=== PATIENT | male | born 1950 | race Caucasian/White ===

== ENCOUNTER 2021-12-20 09:33 | Inpatient (IN) | payer OTHER ==
[~2021-12-20] VITALS: Ht 188 cm; Wt 127.0 kg
[2021-12-20 11:30] LABS: HEMOGLOBIN 11.4 gm/dl (14.0-17.5); RED BLOOD COUNT 3.85 M/UL (4.20-5.50); WHITE BLOOD COUNT 20.2 K/UL (4.5-11.0)
[2021-12-20 11:55] LABS: BUN/CREATININE RATIO 18 (0-10)
[2021-12-20 17:44] LABS: HEMOGLOBIN 11.1 gm/dl (14.0-17.5); RED BLOOD COUNT 3.78 M/UL (4.20-5.50); WHITE BLOOD COUNT 17.7 K/UL (4.5-11.0)
--- NOTE | 2021-12-20 20:24 | NUR ---
PT REFUSES TELEMETRY. NOTIFIED DR SALEH AND RECIEVED ORDERS TO D/C. WILL CONTINUE TO MONITOR.
[2021-12-20] MEDS ORDERED: TRAMADOL HCL50 MG PO (20:42)
[2021-12-20] MEDS ORDERED: AMITRIPTYLINE150 MG PO (20:42)
[2021-12-21 04:25] LABS: HEMOGLOBIN 11.7 gm/dl (14.0-17.5); RED BLOOD COUNT 3.91 M/UL (4.20-5.50); WHITE BLOOD COUNT 17.8 K/UL (4.5-11.0)
[2021-12-21] MEDS ORDERED: CLOPIDOGREL75 MG PO (12:48)
[2021-12-21] MEDS ORDERED: DOXYCYCLINE HY100 MG PO (12:49)
[2021-12-21] MEDS ORDERED: ATORVASTATIN CA80 MG PO (12:50)
[2021-12-21] MEDS ORDERED: METOPROLOL SUCC25 MG PO (12:50)
[2021-12-21] MEDS ORDERED: LISINOPRIL10 MG PO (12:51)
[2021-12-21] MEDS ORDERED: FUROSEMIDE20 MG PO (12:51)
[2021-12-22 04:49] LABS: HEMOGLOBIN 10.6 gm/dl (14.0-17.5); RED BLOOD COUNT 3.55 M/UL (4.20-5.50); WHITE BLOOD COUNT 13.9 K/UL (4.5-11.0)
[2021-12-22] MEDS ORDERED: MAGNESIUM OXID400 M1 PO (16:29)
[2021-12-23 06:15] LABS: HEMOGLOBIN 10.5 gm/dl (14.0-17.5); RED BLOOD COUNT 3.65 M/UL (4.20-5.50)
[2021-12-23 06:17] LABS: WHITE BLOOD COUNT 10.2 K/UL (4.5-11.0)
[2021-12-23 06:51] LABS: BUN/CREATININE RATIO 16 (0-10)
[2021-12-25 05:32] LABS: HEMOGLOBIN 10.8 gm/dl (14.0-17.5); RED BLOOD COUNT 3.66 M/UL (4.20-5.50); WHITE BLOOD COUNT 12.3 K/UL (4.5-11.0)
[2021-12-25 06:02] LABS: BUN/CREATININE RATIO 16 (0-10)
[2021-12-26 06:12] LABS: HEMOGLOBIN 10.5 gm/dl (14.0-17.5); RED BLOOD COUNT 3.54 M/UL (4.20-5.50); WHITE BLOOD COUNT 11.9 K/UL (4.5-11.0)
[2021-12-26 06:34] LABS: BUN/CREATININE RATIO 14 (0-10)
[2021-12-26] MEDS ORDERED: ACETAMINOPHEN325 MG PO (08:51)
[2021-12-26] MEDS ORDERED: ASPIRIN EC81 MG PO (08:51)
[2021-12-26] MEDS ORDERED: FERROUS SULFAT325 M2 PO (08:51)
[2021-12-26] MEDS ORDERED: INVANZ 1 GM (08:51)
[2021-12-26] MEDS ORDERED: LANTUS INS100 UTS/M1 SQ (08:56)
[2021-12-27 05:25] LABS: HEMOGLOBIN 10.2 gm/dl (14.0-17.5); RED BLOOD COUNT 3.55 M/UL (4.20-5.50); WHITE BLOOD COUNT 11.3 K/UL (4.5-11.0)
[2021-12-27 05:38] LABS: BUN/CREATININE RATIO 16 (0-10)
[2021-12-30 07:09] LABS: HEMOGLOBIN 10.6 gm/dl (14.0-17.5); RED BLOOD COUNT 3.61 M/UL (4.20-5.50)
[2021-12-30 07:38] LABS: BUN/CREATININE RATIO 14 (0-10)
[2022-01-01 03:26] LABS: HEMOGLOBIN 10.6 gm/dl (14.0-17.5); RED BLOOD COUNT 3.64 M/UL (4.20-5.50); WHITE BLOOD COUNT 11.9 K/UL (4.5-11.0)
[2022-01-01 03:47] LABS: BUN/CREATININE RATIO 24 (0-10)
--- NOTE | 2022-01-04 10:43 | NUR ---
SPOKE WITH DR. FARRELL CONCERNING WOUND DRESSING CHANGES AND HE STATES DC THE [facility] WOUND ORDER
--- NOTE | 2022-01-04 10:43 | NUR ---
SPOKE WITH DR. FARRELL CONCERNING MRI AND HE STATES TO JUST CANCEL IT. STATES HE DOESN'T WANT A BONE SCANE BECAUSE PT HAS ALREADY HAD ONE
[2022-01-04 14:11] LABS: HEMOGLOBIN 10.4 gm/dl (14.0-17.5); RED BLOOD COUNT 3.58 M/UL (4.20-5.50)
[2022-01-04 14:36] LABS: BUN/CREATININE RATIO 17 (0-10)
[2022-01-05 05:46] LABS: HEMOGLOBIN 10.5 gm/dl (14.0-17.5); RED BLOOD COUNT 3.7 M/UL (4.20-5.50); WHITE BLOOD COUNT 9.9 K/UL (4.5-11.0)
[2022-01-05 06:00] LABS: BUN/CREATININE RATIO 17 (0-10)
--- NOTE | 2022-01-05 10:49 | NUR ---
SPOKE TO THE [facility] AND UPDATED THEM ON PATIENT STATUS AND GAVE THEM PATIENT VITALS.
[2022-01-06 04:44] LABS: HEMOGLOBIN 10.4 gm/dl (14.0-17.5); RED BLOOD COUNT 3.59 M/UL (4.20-5.50); WHITE BLOOD COUNT 11.2 K/UL (4.5-11.0)
--- NOTE | 2022-01-06 12:02 | NUR ---
PATIENT IS BEING TRANSFERRED TO [facility] IN [place], [place] FOR VASCULAR SERVICES. PATIENT HAS BEEN ACCEPTED BY . [facility] NOTIFIED OF TRANSPORT AT 1120. REPORT CALLED TO [facility] ON 6TH FLOOR AT [facility] AT 1127.
== END 2022-01-06 20:20 | disposition short-term general hospital (02) | DRG 264 ==
LOC: ER1 09:33 → M/S 18:46 → CDU 18:46 → M/S 18:46
PROVIDERS: Internal Medicine; Physician Assistant Medical; Student in an Organized Health Care Education/Training Program; ADMIT Internal Medicine
PROC: 0JBR0ZZ Excision of Left Foot Subcutaneous Tissue and Fascia, Open Approach (ICD-10-PCS; 2021-12-21)
PROC: 02HV33Z Insertion of Infusion Device into Superior Vena Cava, Percutaneous Approach (ICD-10-PCS; principal; 2021-12-26)
DX: E11.52 Type 2 diabetes mellitus with diabetic peripheral angiopathy with gangrene (principal); S22.31XA Fracture of one rib, right side, initial encounter for closed fracture; N17.9 Acute kidney failure, unspecified; E87.2 Acidosis; E87.1 Hypo-osmolality and hyponatremia; I96 Gangrene, not elsewhere classified; L03.116 Cellulitis of left lower limb; M86.172 Other acute osteomyelitis, left ankle and foot; Z20.822 Contact with and (suspected) exposure to COVID-19; R29.6 Repeated falls; T79.6XXA Traumatic ischemia of muscle, initial encounter; E11.621 Type 2 diabetes mellitus with foot ulcer; L97.519 Non-pressure chronic ulcer of other part of right foot with unspecified severity; E66.9 Obesity, unspecified; E11.319 Type 2 diabetes mellitus with unspecified diabetic retinopathy without macular edema; G31.84 Mild cognitive impairment of uncertain or unknown etiology; E11.40 Type 2 diabetes mellitus with diabetic neuropathy, unspecified; H54.7 Unspecified visual loss; B96.89 Other specified bacterial agents as the cause of diseases classified elsewhere; I73.9 Peripheral vascular disease, unspecified; I12.9 Hypertensive chronic kidney disease with stage 1 through stage 4 chronic kidney disease, or unspecified chronic kidney disease; N18.9 Chronic kidney disease, unspecified; E03.9 Hypothyroidism, unspecified; E11.22 Type 2 diabetes mellitus with diabetic chronic kidney disease; E86.0 Dehydration; E78.5 Hyperlipidemia, unspecified; L97.529 Non-pressure chronic ulcer of other part of left foot with unspecified severity; Z88.8 Allergy status to other drugs, medicaments and biological substances; Z88.5 Allergy status to narcotic agent; Z79.899 Other long term (current) drug therapy; Z79.4 Long term (current) use of insulin; Z79.82 Long term (current) use of aspirin; Z89.431 Acquired absence of right foot; Z95.1 Presence of aortocoronary bypass graft; Z68.35 Body mass index [BMI] 35.0-35.9, adult
CPT/HCPCS: 36415; 70450; 71045; 73630; 78300; 78315; 80048; 80053; 80202; 82550; 82553; 82962; 83036; 83540; 83550; 83605; 83735; 83880; 84100; 84484; 85025; 85027; 85652; 86140; 87040; 87070; 87077; 87186; 87205; 93925; 96365; 96375; 97110; 97110-GP-CQ; 97116; 97116-GP-CQ; 97161; 97166; 97530; 97530-GP-CQ; 99285; A9503; C1751; G0378; J1335; J1650; J2185; J3370; J3475; J7030; J7070; U0002